=== PATIENT | female | born 1965 | race Two or more races ===

== ENCOUNTER 2017-10-05 07:36 | Outpatient (CLI) | payer OTHER ==
[~2017-10-05 07:36] MED LIST: ANTIVERT25 M1 PO
== END 2017-10-05 07:44 | disposition home or self-care (01) ==
LOC: SONOGRAMA 07:36 → MAMO-SONO 07:45
DX: R10.84 Generalized abdominal pain (principal)

== ENCOUNTER 2017-10-05 09:39 | Outpatient (CLI) | payer OTHER | END 2017-10-05 09:46 | disposition home or self-care (01) | LOC: LAB 09:39 | DX: E11.65 Type 2 diabetes mellitus with hyperglycemia (principal); E10.65 Type 1 diabetes mellitus with hyperglycemia; E03.9 Hypothyroidism, unspecified; E05.90 Thyrotoxicosis, unspecified without thyrotoxic crisis or storm; E78.2 Mixed hyperlipidemia; E55.9 Vitamin D deficiency, unspecified; D64.9 Anemia, unspecified; N39.0 Urinary tract infection, site not specified; E21.3 Hyperparathyroidism, unspecified; E24.9 Cushing's syndrome, unspecified; E28.310 Symptomatic premature menopause; E22.1 Hyperprolactinemia; E27.49 Other adrenocortical insufficiency ==

== ENCOUNTER 2017-12-18 14:32 | Emergency (ER) | payer OTHER ==
[~2017-12-18] VITALS: Ht 152.4 cm; Wt 61.2 kg
== END 2017-12-18 21:27 | disposition home or self-care (01) ==
LOC: ER 14:32
DX: R22.1 Localized swelling, mass and lump, neck (principal); R06.02 Shortness of breath

== ENCOUNTER 2018-03-16 15:07 | Outpatient (CLI) | payer OTHER | END 2018-03-16 15:14 | disposition home or self-care (01) | LOC: MAMO-SONO 15:07 | DX: Z12.31 Encounter for screening mammogram for malignant neoplasm of breast (principal) ==

== ENCOUNTER 2019-04-13 15:58 | Outpatient (CLI) | payer OTHER | END 2019-04-13 16:01 | disposition home or self-care (01) | LOC: RAD 15:58 | DX: M79.642 Pain in left hand (principal); M79.641 Pain in right hand ==

== ENCOUNTER 2019-08-16 15:02 | Outpatient (CLI) | payer OTHER | END 2019-08-16 15:04 | disposition home or self-care (01) | LOC: MRI 15:02 | DX: M25.561 Pain in right knee (principal); S83.281A Other tear of lateral meniscus, current injury, right knee, initial encounter | CPT/HCPCS: 73718 ==

== ENCOUNTER 2021-03-04 08:00 | Outpatient (CLI) | payer OTHER | END 2021-03-04 08:30 | disposition home or self-care (01) | LOC: PPH VACUNA 08:00 | DX: Z23 Encounter for immunization (principal) ==

== ENCOUNTER 2021-03-06 10:10 | Outpatient (CLI) | payer OTHER | END 2021-03-06 10:30 | disposition home or self-care (01) | LOC: MAMO-SONO 10:10 | PROVIDERS: ATTEND Pediatrics | DX: N60.01 Solitary cyst of right breast (principal); M89.8X8 Other specified disorders of bone, other site; Z12.31 Encounter for screening mammogram for malignant neoplasm of breast ==

== ENCOUNTER → 2021-03-21 14:16 | Outpatient (CLI) | payer OTHER | END | disposition home or self-care (01) | LOC: NUCLEAR 14:00 | PROVIDERS: ATTEND Pediatrics | DX: M81.0 Age-related osteoporosis without current pathological fracture (principal) ==

== ENCOUNTER 2021-03-25 08:00 | Outpatient (CLI) | payer OTHER | END 2021-03-25 08:30 | disposition home or self-care (01) | LOC: PPH VACUNA 08:00 | PROVIDERS: ATTEND Emergency Medicine Pediatric Emergency Medicine | DX: Z23 Encounter for immunization (principal) ==

== ENCOUNTER 2022-04-02 13:26 | Outpatient (CLI) | payer OTHER | END 2022-04-02 13:37 | disposition home or self-care (01) | LOC: MRI 13:26 | DX: M17.9 Osteoarthritis of knee, unspecified (principal) | CPT/HCPCS: 73721 ==

== ENCOUNTER 2022-08-21 07:19 | Outpatient (CLI) | payer OTHER ==
[~2022-08-21 07:19] MED LIST changes: +DOLOGESIC 500-1 EACH PO
== END 2022-08-21 07:21 | disposition home or self-care (01) ==
LOC: NUCLEAR 07:19
PROVIDERS: ATTEND Internal Medicine Cardiovascular Disease
DX: I20.1 Angina pectoris with documented spasm (principal)
CPT/HCPCS: 78452; 93017; A9500; J1250

== ENCOUNTER 2022-11-13 10:44 | Outpatient (CLI) | payer OTHER | END 2022-11-13 11:08 | disposition home or self-care (01) | LOC: MAMO-SONO 10:44 | DX: Z12.31 Encounter for screening mammogram for malignant neoplasm of breast (principal) ==

== ENCOUNTER 2024-10-13 15:44 | Outpatient (CLI) | payer OTHER | END 2024-10-13 15:57 | disposition home or self-care (01) | LOC: SONOGRAMA 15:44 | DX: M25.561 Pain in right knee (principal) ==

== ENCOUNTER 2025-05-25 14:10 | Outpatient (CLI) | payer OTHER | END 2025-05-25 14:13 | disposition home or self-care (01) | LOC: MAMO-SONO 14:10 | PROVIDERS: ATTEND Pediatrics | DX: J00 Acute nasopharyngitis [common cold] (principal); Z12.31 Encounter for screening mammogram for malignant neoplasm of breast ==